=== PATIENT | male | born 1950 | race American Indian/Alaskan Native ===

== ENCOUNTER 2019-05-18 09:26 | Day surgery (SDC) | payer OTHER ==
[2019-05-18] MEDS ORDERED: NACL 0.9% 1000 ML 1,000 ML IV SCH (10:00)
[2019-05-18] MEDS ORDERED: DIPRIVAN 10 MG/ML IV ONE ×2 (10:01→10:02)
--- NOTE | 2019-05-18 10:26 | Anesthesia Day of Surgery ---
Anesthesia Day of Surgery - Day of Surgery Patient Examined: Yes Patient H&P Reviewed: Yes Patient is NPO: Yes
--- NOTE | 2019-05-18 10:28 | Anesthesia Consultation ---
Anesthesia Consult and Med Hx Date of service: 05/18/19 - Airway Anesthetic Teeth Evaluation: Chipped, Caps ROM Head & Neck: Adequate Mental/Hyoid Distance: Adequate Mallampati Class: Class I Intubation Access Assessment: Good - Pre-Operative Health Status ASA Pre-Surgery Classification: ASA2 Proposed Anesthetic Plan: MAC - Cardiovascular System Hx Hypertension: Yes
[2019-05-18] MEDS ORDERED: WATER FOR IRRIG STERILE IR ONE (10:49)
[2019-05-18] MEDS ORDERED: WATER FOR IRRIG STERILE ONE (11:16)
[2019-05-18 12:01] VITALS: BP 126/71
--- NOTE | 2019-05-18 14:11 | Operative Report ---
Operative Report Operative Report: Date of procedure: 05/18/2019 Procedure: Colonoscopy with Snare polypectomy, submucosal injection with el evation of colon polyp. Attending physician: Tam Kirk M.D. Parachute Folder: Tam Kirk M.D. Indication: Patient is a 69-year-old male who presents for screening colonoscopy. This colonoscopy serves to evaluate patient so that treatment may be directed based on the findings. Consent: Informed consent was obtained after advising the patient and family regarding nature of this procedure, its indications, potential benefits as well as possible complications including but not limited to bleeding perforation and adverse reaction to medication, infection as well as other cardiopulmonary compl ications. An informed written and verbal consent was then obtained after due opportunity was provided for questions and answers. Monitoring: Patient was monitored continuously with pulse oximetry and electrocardiographic recordings as well as blood pressure recordings. Vital signs remained stable throughout this procedure with no untoward events. Preoperative assessment: Patient was assessed immediately prior to this procedure for capacity to tolerate monitored anesthesia care and moderate sedation as well as general anesthesia. Patient's ASA classification is 2, Mallampati class is 2, Hyomental distance is 3. Instrument: Olympus video colonoscope. Medications: Propofol given intravenously in divided doses. For details please refer to anesthesia records. Description of procedure: Patient was placed in the left lateral decubitus position after achieving sedation, a digital rectal examination was performed following which the colonoscope was introduced into the anal verge and advanced to the cecum which was identified by the cecal valve, the appendiceal orifice, as well as by the cecal strap and direct transillumination. The colonoscope was subsequently withdrawn with careful inspection of all mucosal surfaces. Patient tolerated this procedure well and was subsequently taken to the recovery room. The following findings were noted. Findings: Patient had a broad-based sessile polyp seen in the ascending measuring about 8mm. This was elevated with submucosal injection of saline and removed by snare electrocautery and retrieved. There was scattered thick liquid stool seen in various sections of the colon which was irrigated as much as possible to optimize visualization. There were colonic diverticula in the sigmoid, descending colon and ascending colon colon. There were no additional lesions seen. Patient was noted to have prominent large internal hemorrhoids seen on the retroflexed view at the anal verge. Impression: Ascending colon polyp status post snare polypectomy and submucosal injection Retained stool Diverticular disease of the sigmoid colon. Prominent internal hemorrhoids. Plan: Follow pathology report. High-fiber diet. Consider repeat colonoscopy in one year due to poor colonoscopic preparation Patient likely will benefit from hemorrhoidal band ligation if he has symptoms.
--- NOTE | 2019-05-18 14:12 | Discharge Summary ---
Short Stay Discharge Plan Activity: advance as tolerated Weight Bearing Status: Weight Bear as Tolerated Diet: regular Additional Instructions: Post Sedation D/C Instructions When you return home you may resume your regular diet unless otherwise directed. Go directly home from the hospital and rest quietly. You may resume normal activities tomorrow. Do NOT drive, return to work, operate any machinery or make any important personal or business decisions today. Do NOT drink any alcohol or take nerve or sleeping drugs. They add to the effects of the medicine still present in your body. Follow up with: [facility] [Primary Care Provider] - 7 Days
== END 2019-05-18 09:27 | disposition home or self-care (01) ==
LOC: GIO 09:26
PROVIDERS: ATTEND Internal Medicine Gastroenterology
DX: Z12.11 Encounter for screening for malignant neoplasm of colon (principal); K63.5 Polyp of colon; K57.30 Diverticulosis of large intestine without perforation or abscess without bleeding; K64.8 Other hemorrhoids; I10 Essential (primary) hypertension; G47.30 Sleep apnea, unspecified; F43.10 Post-traumatic stress disorder, unspecified; F17.210 Nicotine dependence, cigarettes, uncomplicated; Z90.49 Acquired absence of other specified parts of digestive tract; Z98.890 Other specified postprocedural states; Z79.899 Other long term (current) drug therapy
CPT/HCPCS: 45381; 45385; 88305; J2704; J7030